=== PATIENT | male | born 1995 | race Caucasian/White ===

== ENCOUNTER 2023-10-09 02:54 | Emergency (ER) | payer SELFPAY ==
[~2023-10-09] VITALS: Ht 177.8 cm; Wt 89.0 kg
[2023-10-09 02:58] VITALS: BP 143/97; PULSE 99; RESP 18; O2SAT 96
== END 2023-10-09 03:11 ==
LOC: ER 02:54
DX: R68.89 Other general symptoms and signs (principal)
CPT/HCPCS: 99283